=== PATIENT | male | born 1955 | race Two or more races ===

== ENCOUNTER 2022-12-07 08:01 | Outpatient (RCR) | payer BC, SELFPAY ==
--- NOTE | ~2022-12-07 | XR_ITS ---
EXAMINATION: XR CHEST CLINICAL INFORMATION: Prehyperbaric oxygen chamber therapy COMPARISON: None available. TECHNIQUE: 2 views of the chest were obtained. FINDINGS: No significant abnormality is noted involving the heart, lungs, mediastinum, bony thorax or soft tissues. The tip of the left-sided PICC line is seen in the superior vena cava. XR/XR chest 2V IMPRESSION: No acute cardiopulmonary disease.
--- NOTE | 2023-02-22 11:10 | ECG_ITS ---
Test Reason : PRE HYPERBARIC OXYGEN CHAMBER THERAPY Blood Pressure : / mmHG Vent. Rate : 095 BPM Atrial Rate : 095 BPM P-R Int : 162 ms QRS Dur : 082 ms QT Int : 332 ms P-R-T Axes : 018 011 031 degrees QTc Int : 417 ms Normal sinus rhythm Normal ECG No previous ECGs available Referred By: Sarah Lara Electronically Signed By:Lawrence Cortes
[2023-04-05 16:50] LABS: Estimated Average Glucose 151 mg/dL; Hemoglobin A1c % 6.9 % (<6.0)
== END 2023-05-15 16:12 | disposition expired ==
LOC: HO.WCC 08:01
PROVIDERS: PCP Nurse Practitioner Family; Referring Provider Podiatrist; Visit Provider Physician Assistant
DX: E11.621 Type 2 diabetes mellitus with foot ulcer (principal); L97.525 Non-pressure chronic ulcer of other part of left foot with muscle involvement without evidence of necrosis; E11.69 Type 2 diabetes mellitus with other specified complication; M86.172 Other acute osteomyelitis, left ankle and foot
CPT/HCPCS: 11042; 11043; 11045; 36415; 71046; 83036; 87070; 87073; 87076; 87077; 87147; 87186; 87205; 93005; 99183; 99213

== ENCOUNTER → 2023-02-22 11:10 | Outpatient (BNV) | payer BC, SELFPAY | PROVIDERS: PCP Nurse Practitioner Family; Referring Provider Podiatrist; Visit Provider Internal Medicine Cardiovascular Disease | DX: Z01.818 Encounter for other preprocedural examination (principal); E11.621 Type 2 diabetes mellitus with foot ulcer | CPT/HCPCS: 93010 ==